=== PATIENT | female | born 1985 | race Two or more races ===

== ENCOUNTER 2023-01-13 19:17 | Inpatient (IN) | payer OTHER ==
[~2023-01-13] VITALS: Ht 152.4 cm; Wt 57.2 kg
[2023-01-13] MEDS ORDERED: TRIJARDY XR 101 EACH (19:34)
[2023-01-13] MEDS ORDERED: LANTUS SOL100 UNIT/1 (19:34)
[2023-01-13] MEDS ORDERED: APIDRA100 UNIT/1 (19:35)
[2023-01-13 22:00] LABS: URINE APPEARANCE Clear; URINE BILIRRUBIN Negative (NEGATIVE); URINE BLOOD Large; URINE COLOR Yellow; URINE LEUKOCYTE Negative; URINE NITRATE Negative; URINE PROTEIN 30 (NEGATIVE); URINE UROBILINOGEN 0.2 E.U./dl
[2023-01-13 22:07] LABS: URINE BACTERIA 23.9 uL (0.0-1933); URINE EPITHELIAL CELLS 6.4 uL (0.0-38.8); URINE RBC 559.4 uL (0.0-20.8)
[2023-01-13 22:08] LABS: HEMOGLOBIN 13.6 g/dL (12.0-15.00); MEAN CELL VOLUME 81.7 fL (80.00-100.00); MEAN CORPUSCULAR HEMOGLOBIN 26.4 pg (27.00-32.0); MEAN CORPUSCULAR HGB CONC 32.4 g/dl (32.0-36.0); PLATELET COUNT 523 K/uL (150-450); RED BLOOD COUNT 5.14 M/uL (4.00-6.00); RED CELL DISTRIBUTION WIDTH 14.9 % (11.5-14.5)
[2023-01-13 22:22] LABS: URINE GLUCOSE >=1000 MG/DL (NEGATIVE); URINE WBC 1.3 uL (0.0-23.2)
[2023-01-13 22:31] LABS: ALBUMIN 4.8 gm/dL (3.4-5.0); ALKALINE PHOSPHATASE 90 U/L (50-136); ALT/SGPT 29 U/L (12-78); AMYLASE 87 U/L (25-115); AST/SGOT 35 U/L (15-37); BILIRUBIN TOTAL 1.86 mg/dL (0.3-1.2); BLOOD UREA NITROGEN 25 mg/dL (7-18); BUN CREA RATIO 28 (7.0-25.0); CALCIUM 9.5 mg/dL (8.5-10.1); CHLORIDE 104 mmol/L (98-107); CREATININE SERUM 0.89 mg/dL (0.55-1.02); GFR 70.61; GLOBULINA 4.2 G/DL (2.4-3.5); LIPASE 11 U/L (13-75); POTASSIUM 4.44 mEq/L (3.5-5.1); SODIUM 135 mmol/L (136-145)
[2023-01-13 22:37] LABS: ANION GAP 25 (10.0-20.0); CARBON DIOXIDE 10 mEq/L (21-32); GLUCOSE FASTING 235 mg/dL (65-100); HCG QUANTITATIVE < 1 mUI/mL (1-3); OSMOLALITY SERUM 282 MOSM/KG (275-295)
[2023-01-13 23:26] LABS: ABG PH 7.196 (7.35-7.45); ABG PO2 126.3 mmHg (80-100); ABG pCO2 20.7 mmHg (35-45); BASE EXCESS -18.1 mmol/l; BICARBONATE 7.8 mmol/l (23-25); SaO2 97.4 %; Tco2 7.8 mmol/l; allen test SATISFACTORY; o2 8.5 %; puncture site RADIAL RIGHT
[2023-01-14 06:31] LABS: ABG PH 7.194 (7.35-7.45)
[2023-01-14 06:32] LABS: ABG PO2 127.5 mmHg (80-100); ABG pCO2 16.8 mmHg (35-45)
[2023-01-14 06:33] LABS: BASE EXCESS -19.3 mmol/l; BICARBONATE 6.3 mmol/l (23-25); Tco2 6.8 mmol/l; allen test SATISFACTORY; o2 21 %; puncture site RADIAL LEFT
[2023-01-14 06:34] LABS: SaO2 97.4 %
[2023-01-14 13:12] LABS: HEMATOCRIT 36.4 % (36.0-45.00); HEMOGLOBIN 11.5 g/dL (12.0-15.00); MEAN CELL VOLUME 81.8 fL (80.00-100.00); MEAN CORPUSCULAR HEMOGLOBIN 25.9 pg (27.00-32.0); MEAN CORPUSCULAR HGB CONC 31.7 g/dl (32.0-36.0); PLATELET COUNT 393 K/uL (150-450); RED BLOOD COUNT 4.45 M/uL (4.00-6.00); RED CELL DISTRIBUTION WIDTH 15.2 % (11.5-14.5)
[2023-01-14 13:37] LABS: ALBUMIN 3.7 gm/dL (3.4-5.0); CREATININE SERUM 0.69 mg/dL (0.55-1.02); GFR 94.72; MAGNESIUM 1.9 mg/dL (1.8-2.4); PHOSPHOROUS 2.7 mg/dL (2.5-4.9); POTASSIUM 4.1 mEq/L (3.5-5.1)
[2023-01-14 15:49] LABS: URINE APPEARANCE Clear; URINE BILIRRUBIN Negative (NEGATIVE); URINE BLOOD Large; URINE COLOR Yellow; URINE LEUKOCYTE Negative; URINE NITRATE Negative; URINE PROTEIN Trace (NEGATIVE); URINE UROBILINOGEN 0.2 E.U./dl
[2023-01-14 15:50] LABS: URINE BACTERIA 25.1 uL (0.0-1933); URINE EPITHELIAL CELLS 13.7 uL (0.0-38.8); URINE RBC 1367.6 uL (0.0-20.8); URINE WBC 5.5 uL (0.0-23.2)
[2023-01-14 16:11] LABS: URINE GLUCOSE >=1000 MG/DL (NEGATIVE)
[2023-01-15 07:37] LABS: CALCIUM 7.7 mg/dL (8.5-10.1); CREATININE SERUM 0.67 mg/dL (0.55-1.02); GFR 97.99; POTASSIUM 3.86 mEq/L (3.5-5.1)
[2023-01-15 18:52] LABS: CALCIUM 7.9 mg/dL (8.5-10.1); CREATININE SERUM 0.63 mg/dL (0.55-1.02); GFR 105.2; POTASSIUM 3.34 mEq/L (3.5-5.1)
[2023-01-16 06:23] LABS: HEMATOCRIT 34.1 % (36.0-45.00); HEMOGLOBIN 11.6 g/dL (12.0-15.00); MEAN CELL VOLUME 79.2 fL (80.00-100.00); MEAN CORPUSCULAR HEMOGLOBIN 26.9 pg (27.00-32.0); PLATELET COUNT 410 K/uL (150-450); RED BLOOD COUNT 4.31 M/uL (4.00-6.00); RED CELL DISTRIBUTION WIDTH 14.8 % (11.5-14.5)
[2023-01-16 06:53] LABS: CALCIUM 8.4 mg/dL (8.5-10.1); CREATININE SERUM 0.48 mg/dL (0.55-1.02); GFR 143.98; POTASSIUM 3.6 mEq/L (3.5-5.1)
== END 2023-01-16 14:12 | disposition home or self-care (01) | DRG 639 ==
LOC: ER 19:18 → ICU 01-14 12:10
PROVIDERS: General Practice; Internal Medicine Endocrinology, Diabetes & Metabolism; ADMIT Internal Medicine; ATTEND Internal Medicine
DX: E10.10 Type 1 diabetes mellitus with ketoacidosis without coma (principal); E86.0 Dehydration; Z79.4 Long term (current) use of insulin